=== PATIENT | female | born 1945 | race Two or more races ===

== ENCOUNTER 2021-08-30 14:15 | Emergency (ER) | payer OTHER ==
[~2021-08-30] VITALS: Ht 147.3 cm; Wt 63.5 kg
[2021-08-30] MEDS ORDERED: ZOHYDRO ER15 MG (14:36)
[2021-08-30] MEDS ORDERED: [UNRECOGNIZED DRUG - OTHER] (14:36)
== END 2021-08-30 16:36 | disposition home or self-care (01) ==
LOC: ER 14:15
DX: B02.9 Zoster without complications (principal)

== ENCOUNTER 2021-09-02 09:01 | Emergency (ER) | payer OTHER ==
[~2021-09-02] VITALS: Ht 149.9 cm; Wt 76.2 kg
[~2021-09-02 09:01] MED LIST: ZOHYDRO ER15 MG; [UNRECOGNIZED DRUG - OTHER]
[2021-09-02] MEDS ORDERED: CHLORTHALIDONE25 MG PO ×2 (09:15→09:58)
[2021-09-02] MEDS ORDERED: DIOVAN40 MG PO (09:16)
[2021-09-02] MEDS ORDERED: HIGH POTENCY42.5 GM TOP (09:39)
[2021-09-02] MEDS ORDERED: CELEBREX100 MG PO (09:39)
== END 2021-09-02 10:13 | disposition home or self-care (01) ==
LOC: ER 09:01
DX: B02.9 Zoster without complications (principal)